=== PATIENT | male | born 1950 | race Caucasian/White ===

== ENCOUNTER 2023-01-03 13:16 | Inpatient (IN) ==
[2023-01-03 14:52] LABS: ABS Eosinophils 0.2 10^3/uL (0.0-0.5); ABS Lymphocytes 1.2 10^3/uL (1.0-4.8); ABS Monocytes 0.6 10^3/uL (0.0-1.1); ABS Neutrophils 5.6 10^3/uL (1.5-7.6); Eosinophil % 2.7 %; Hematocrit 22.1 % (38-53); Hemoglobin 7.4 g/dL (13.2-16.3); Lymphocyte % 15.5 %; Mean Corpuscular Hemoglobin 29.9 pg (27-33); Mean Corpuscular Hgb Conc 33.3 g/dL (31-36); Mean Corpuscular Volume 89.8 fL (80-97); Mean Platelet Volume 8.6 fL (7.5-11.2); Platelet Count 158 10^3/uL (150-450); Red Blood Count 2.46 10^6/uL (4.06-5.63); Red Cell Distribution Width 18.4 % (12-17); White Blood Count 7.6 10^3/uL (3.6-10.2)
[2023-01-03 15:03] LABS: INR 1.51 (0.88-1.18)
[2023-01-03] MEDS ORDERED: NS 0.9% 1000 ml BAG 200 ML IV PRN (15:22)
[2023-01-03] MEDS ORDERED: NS 0.9% 1000 ml BAG 100 ML IV PRN (15:22)
[2023-01-03] MEDS ORDERED: Albumin Human 25% 25 GM/100 ML BTL IV PRN (15:22)
[2023-01-03 15:24] LABS: Albumin 3.8 g/dL (3.2-5.2); Albumin/Globulin Ratio 1.5 (1-3); Calcium 9.6 mg/dL (8.6-10.3); Creatinine, Serum 3.53 mg/dL (0.67-1.17); Globulin 2.5 g/dL (2-4); Magnesium 1.8 mg/dL (1.9-2.7); Phosphorus 3.4 mg/dL (2.5-5.0); Potassium 3.3 mmol/L (3.5-5.0); Total Bilirubin 1.3 mg/dL (0.2-1.0); Total Protein 6.3 g/dL (6.4-8.9); eGFR CKD-EPI 17.4 (>60)
[2023-01-03] MEDS ORDERED: Magnesium Sulfate 2 gm BAG 2 GM/50 ML BAG IVPB ONE (16:11)
[2023-01-03] MEDS: Heparin 1,000 UNIT/ML 10 ml (10,000 UNITS) CATHLAB/DIALYSIS DIALYSIS SCH ×4 (16:16→19:15)
[2023-01-03 23:24] LABS: Hepatitis B Surface Antigen Nonreactive (Nonreactive)
[2023-01-03 23:29] LABS: Hepatitis B Core IgM Nonreactive (Nonreactive)
[2023-01-03 23:41] LABS: Hepatitis B Surface Ab Not Immune (Immune); Hepatitis C Antibody Negative (Negative)
[2023-01-04 09:50] LABS: ABS Eosinophils 0.1 10^3/uL (0.0-0.5); ABS Lymphocytes 0.9 10^3/uL (1.0-4.8); ABS Monocytes 0.5 10^3/uL (0.0-1.1); ABS Neutrophils 4.9 10^3/uL (1.5-7.6); Eosinophil % 1.9 %; Hematocrit 22.1 % (38-53); Hemoglobin 7.4 g/dL (13.2-16.3); Lymphocyte % 13.4 %; Mean Corpuscular Hgb Conc 33.3 g/dL (31-36); Mean Corpuscular Volume 90.3 fL (80-97); Mean Platelet Volume 8.3 fL (7.5-11.2); Platelet Count 142 10^3/uL (150-450); Red Blood Count 2.45 10^6/uL (4.06-5.63); Red Cell Distribution Width 18.2 % (12-17); White Blood Count 6.5 10^3/uL (3.6-10.2)
[2023-01-04 10:36] LABS: Creatinine, Serum 3.31 mg/dL (0.67-1.17); Potassium 3.3 mmol/L (3.5-5.0); eGFR CKD-EPI 18.8 (>60)
[2023-01-04] MEDS: Heparin 1,000 UNIT/ML 10 ml (10,000 UNITS) CATHLAB/DIALYSIS DIALYSIS SCH ×3 (11:34→13:47)
[2023-01-04] MEDS ORDERED: NS 0.9% 1000 ml BAG 200 ML IV PRN (11:50)
[2023-01-04] MEDS ORDERED: NS 0.9% 1000 ml BAG 100 ML IV PRN (11:50)
[2023-01-04] MEDS ORDERED: Albumin Human 25% 25 GM/100 ML BTL IV PRN (11:50)
[2023-01-04] MEDS: Cholecalciferol (VIT D3) 1,000 unit TAB PO SCH (14:09)
[2023-01-05] MEDS: Cholecalciferol (VIT D3) 1,000 unit TAB PO SCH (07:24)
[2023-01-05 12:04] LABS: ABS Basophils 0.1 10^3/uL (0.0-0.1); ABS Eosinophils 0.1 10^3/uL (0.0-0.5); ABS Lymphocytes 0.9 10^3/uL (1.0-4.8); ABS Monocytes 0.7 10^3/uL (0.0-1.1); ABS Neutrophils 5.5 10^3/uL (1.5-7.6); Eosinophil % 1.4 %; Hematocrit 24.5 % (38-53); Hemoglobin 8.2 g/dL (13.2-16.3); Lymphocyte % 12.6 %; Mean Corpuscular Hemoglobin 30.3 pg (27-33); Mean Corpuscular Hgb Conc 33.6 g/dL (31-36); Mean Platelet Volume 8.5 fL (7.5-11.2); Platelet Count 165 10^3/uL (150-450); Red Blood Count 2.72 10^6/uL (4.06-5.63); Red Cell Distribution Width 18.5 % (12-17); White Blood Count 7.3 10^3/uL (3.6-10.2)
[2023-01-05 12:31] LABS: Calcium 9.2 mg/dL (8.6-10.3); Creatinine, Serum 3.87 mg/dL (0.67-1.17); Magnesium 1.8 mg/dL (1.9-2.7); Potassium 3.5 mmol/L (3.5-5.0); eGFR CKD-EPI 15.6 (>60)
[2023-01-05] MEDS ORDERED: Magnesium Sulfate IV 3 GM in NS 0.9% 100 ml BAG 100 ML IVPB ONE (13:15)
[2023-01-05 18:48] LABS: Calcium 9.1 mg/dL (8.6-10.3); Creatinine, Serum 4.01 mg/dL (0.67-1.17); Magnesium 2.7 mg/dL (1.9-2.7); Potassium 3.5 mmol/L (3.5-5.0); eGFR CKD-EPI 14.9 (>60)
[2023-01-05] MEDS ORDERED: Potassium Chloride LIQUID 20 MEQ/15 ML LIQUID PO ONE (19:24)
[2023-01-06 06:55] LABS: ABS Basophils 0.1 10^3/uL (0.0-0.1); ABS Eosinophils 0.1 10^3/uL (0.0-0.5); ABS Lymphocytes 1.3 10^3/uL (1.0-4.8); ABS Monocytes 0.7 10^3/uL (0.0-1.1); ABS Neutrophils 4.7 10^3/uL (1.5-7.6); ABS Nucleated RBC 0.01 10^3/ul; Eosinophil % 1.7 %; Hemoglobin 7.8 g/dL (13.2-16.3); Lymphocyte % 18.5 %; Mean Corpuscular Hemoglobin 30.5 pg (27-33); Mean Corpuscular Hgb Conc 34.1 g/dL (31-36); Mean Corpuscular Volume 89.6 fL (80-97); Mean Platelet Volume 9.1 fL (7.5-11.2); Nucleated Red Blood Cells % 0.1 /100 WBC (0.0-0.4); Platelet Count 163 10^3/uL (150-450); Red Blood Count 2.57 10^6/uL (4.06-5.63); Red Cell Distribution Width 17.9 % (12-17); White Blood Count 6.8 10^3/uL (3.6-10.2)
[2023-01-06 07:11] LABS: Calcium 9.2 mg/dL (8.6-10.3); Creatinine, Serum 3.61 mg/dL (0.67-1.17); Magnesium 2.3 mg/dL (1.9-2.7); Potassium 3.8 mmol/L (3.5-5.0); eGFR CKD-EPI 16.9 (>60)
[2023-01-06] MEDS ORDERED: Potassium Chlor 20 meq TAB.ER PO ONE (07:15)
[2023-01-06] MEDS: Cholecalciferol (VIT D3) 1,000 unit TAB PO SCH (09:20)
[2023-01-06] MEDS: Heparin 1,000 UNIT/ML 10 ml (10,000 UNITS) CATHLAB/DIALYSIS DIALYSIS SCH (09:23)
[2023-01-06] MEDS ORDERED: Potassium Chlor 10 meq TAB PO ONE (14:08)
[2023-01-07 06:18] LABS: ABS Eosinophils 0.2 10^3/uL (0.0-0.5); ABS Lymphocytes 1.4 10^3/uL (1.0-4.8); ABS Monocytes 0.7 10^3/uL (0.0-1.1); ABS Neutrophils 4.7 10^3/uL (1.5-7.6); Eosinophil % 2.6 %; Hemoglobin 7.9 g/dL (13.2-16.3); Lymphocyte % 19.8 %; Mean Corpuscular Hemoglobin 30.2 pg (27-33); Mean Corpuscular Volume 91.5 fL (80-97); Nucleated Red Blood Cells % 0.1 /100 WBC (0.0-0.4); Platelet Count 181 10^3/uL (150-450); Red Blood Count 2.62 10^6/uL (4.06-5.63); Red Cell Distribution Width 18.4 % (12-17)
[2023-01-07 06:46] LABS: Calcium 9.5 mg/dL (8.6-10.3); Creatinine, Serum 3.43 mg/dL (0.67-1.17); Magnesium 2.1 mg/dL (1.9-2.7); Potassium 4.2 mmol/L (3.5-5.0)
[2023-01-07] MEDS: Cholecalciferol (VIT D3) 1,000 unit TAB PO SCH (08:00)
[2023-01-07] MEDS: Potassium Chlor 20 meq TAB.ER PO SCH (09:25)
[2023-01-08 06:31] LABS: Mean Corpuscular Hemoglobin 30.2 pg (27-33); Mean Corpuscular Hgb Conc 33.4 g/dL (31-36); Mean Corpuscular Volume 90.4 fL (80-97); Red Blood Count 2.66 10^6/uL (4.06-5.63); Red Cell Distribution Width 18.2 % (12-17); White Blood Count 7.3 10^3/uL (3.6-10.2)
[2023-01-08 06:32] LABS: ABS Basophils 0.1 10^3/uL (0.0-0.1); ABS Eosinophils 0.2 10^3/uL (0.0-0.5); ABS Lymphocytes 1.5 10^3/uL (1.0-4.8); ABS Monocytes 0.6 10^3/uL (0.0-1.1); Eosinophil % 2.4 %; Lymphocyte % 20.5 %; Platelet Count 206 10^3/uL (150-450)
[2023-01-08 06:50] LABS: Calcium 9.6 mg/dL (8.6-10.3); Creatinine, Serum 3.26 mg/dL (0.67-1.17); Magnesium 2.2 mg/dL (1.9-2.7); eGFR CKD-EPI 19.1 (>60)
[2023-01-08] MEDS: Potassium Chlor 20 meq TAB.ER PO SCH (09:23)
[2023-01-08] MEDS: Cholecalciferol (VIT D3) 1,000 unit TAB PO SCH (09:25)
[2023-01-08] MEDS: Heparin 1,000 UNIT/ML 10 ml (10,000 UNITS) CATHLAB/DIALYSIS DIALYSIS SCH (09:26)
[2023-01-08 16:19] VITALS: BP 121/46
== END 2023-01-08 15:40 | disposition home or self-care (01) | DRG 683 ==
LOC: ED 13:16 → SUATTDRO 15:09 → EDHOLD 15:09 → MEDTELE 16:25
PROVIDERS: ADMIT Internal Medicine; ATTEND Hospitalist

== ENCOUNTER 2023-02-05 13:50 | Observation (INO) ==
[~2023-02-05 13:50] MED LIST: Dexamethasone IV 4 MG/ML VIAL 1 ml VIAL ONE; Naloxone 0.4 mg VIAL 0.4 mg/ml 1 ml VIAL IV PRN; Prochlorperazine 5 mg/ml 2 ml VIAL (10 mg) IV PRN; Tranexamic Acid 1 GM/100ML BAG 0 MG/0 ML BAG IV ONE; ceFAZolin 2 GM in NS PREMIX 0 GM/0 ML BAG IVPB ONE; fentaNYL 100 mcg/2 ml 50 MCG/ML VIAL IV PRN
[2023-02-05] MEDS ORDERED: ceFAZolin 2 GM in NS PREMIX 2 GM/100 ML BAG IVPB ONE (17:35)
[2023-02-05] MEDS ORDERED: Naloxone 0.4 mg VIAL 0.4 mg/ml 1 ml VIAL IV PRN (19:51)
[2023-02-05] MEDS ORDERED: Metoclopramide 5 MG/ML VIAL (10 mg) IV PRN (19:51)
[2023-02-05] MEDS ORDERED: HYDROcodone/ACETAMIN 5/325 mg TAB PO PRN (19:51)
[2023-02-05] MEDS ORDERED: Ondansetron 4 mg VIAL 2 MG/ML 2 ml VIAL IV PRN (19:51)
[2023-02-05] MEDS ORDERED: fentaNYL 100 mcg/2 ml 50 MCG/ML VIAL IV PRN (19:51)
[2023-02-05] MEDS ORDERED: Bupivacaine 0.25% w/EPI 10 ML SDV ONE (19:59)
[2023-02-05] MEDS ORDERED: fentaNYL 100 mcg/2 ml 50 MCG/ML VIAL ONE (20:12)
[2023-02-05] MEDS ORDERED: Propofol 10 MG/ML 20 ML BTL ONE (20:27)
[2023-02-05 23:17] LABS: Rapid COVID-19 Molecular Undetected (Undetected)
[2023-02-05] MEDS ORDERED: Metoprolol Tartrate 5 mg VIAL 5 ml VIAL (1 mg/ml) IV ONE (23:29)
[2023-02-06 01:27] LABS: ABS Basophils 0.1 10^3/uL (0.0-0.1); ABS Eosinophils 0.1 10^3/uL (0.0-0.5); ABS Lymphocytes 1.6 10^3/uL (1.0-4.8); ABS Monocytes 0.7 10^3/uL (0.0-1.1); ABS Neutrophils 5.6 10^3/uL (1.5-7.6); ABS Nucleated RBC 0.01 10^3/ul; Eosinophil % 1.7 %; Hematocrit 22.5 % (38-53); Hemoglobin 7.7 g/dL (13.2-16.3); Lymphocyte % 20.2 %; Mean Corpuscular Hemoglobin 30.2 pg (27-33); Mean Corpuscular Hgb Conc 34.3 g/dL (31-36); Mean Corpuscular Volume 88.1 fL (80-97); Mean Platelet Volume 9.4 fL (7.5-11.2); Nucleated Red Blood Cells % 0.1 /100 WBC (0.0-0.4); Platelet Count 148 10^3/uL (150-450); Red Blood Count 2.56 10^6/uL (4.06-5.63); Red Cell Distribution Width 17.4 % (12-17); White Blood Count 8.1 10^3/uL (3.6-10.2)
[2023-02-06 01:37] LABS: Calcium 9.7 mg/dL (8.6-10.3); Potassium 2.9 mmol/L (3.5-5.0)
[2023-02-06 01:42] LABS: Creatinine, Serum 4.03 mg/dL (0.67-1.17); eGFR CKD-EPI 14.7 (>60)
[2023-02-06] MEDS ORDERED: Metoprolol Tartrate 5 mg VIAL 5 ml VIAL (1 mg/ml) IV ONE (03:03)
[2023-02-06 04:02] LABS: Magnesium 2.1 mg/dL (1.9-2.7)
[2023-02-06] MEDS: KCL 20 MEQ/100 ML IVPREMIX 20 MEQ/100 ML BAG IV SCH ×2 (04:09→06:11)
[2023-02-06 07:21] LABS: ABS Basophils 0.1 10^3/uL (0.0-0.1); ABS Eosinophils 0.2 10^3/uL (0.0-0.5); ABS Lymphocytes 1.3 10^3/uL (1.0-4.8); ABS Monocytes 0.7 10^3/uL (0.0-1.1); ABS Neutrophils 6.2 10^3/uL (1.5-7.6); ABS Nucleated RBC 0.01 10^3/ul; Eosinophil % 1.8 %; Hematocrit 22.3 % (38-53); Hemoglobin 7.5 g/dL (13.2-16.3); Lymphocyte % 15.6 %; Mean Corpuscular Hgb Conc 33.7 g/dL (31-36); Mean Corpuscular Volume 88.9 fL (80-97); Mean Platelet Volume 10.2 fL (7.5-11.2); Nucleated Red Blood Cells % 0.1 /100 WBC (0.0-0.4); Platelet Count 146 10^3/uL (150-450); White Blood Count 8.5 10^3/uL (3.6-10.2)
[2023-02-06 07:32] LABS: Calcium 9.6 mg/dL (8.6-10.3); Potassium 3.5 mmol/L (3.5-5.0)
[2023-02-06 07:37] LABS: Creatinine, Serum 4.16 mg/dL (0.67-1.17); eGFR CKD-EPI 14.2 (>60)
[2023-02-06] MEDS ORDERED: Potassium Chlor 20 meq TAB.ER PO SCH ×2 (09:00→14:00)
[2023-02-06] MEDS ORDERED: NON FORMULARY MED (Metolazone 2.5 mg Tablet) PO SCH (09:45)
[2023-02-06 14:03] VITALS: BP 126/42
[2023-02-06 17:09] LABS: Calcium 9.8 mg/dL (8.6-10.3); Creatinine, Serum 3.87 mg/dL (0.67-1.17); Potassium 3.7 mmol/L (3.5-5.0); eGFR CKD-EPI 15.5 (>60)
== END 2023-02-06 16:34 | disposition home or self-care (01) ==
LOC: MEDTELE 13:50 → OR 13:50
PROVIDERS: ADMIT Surgery; ATTEND Internal Medicine

== ENCOUNTER 2024-04-28 02:47 | Inpatient (IN) ==
[2024-04-28 04:20] LABS: ABS Basophils 0.1 10^3/uL (0.0-0.1); ABS Eosinophils 0.1 10^3/uL (0.0-0.5); ABS Lymphocytes 0.5 10^3/uL (1.0-4.8); ABS Monocytes 0.8 10^3/uL (0.0-1.1); ABS Neutrophils 11.7 10^3/uL (1.5-7.6); Eosinophil % 0.5 %; Hematocrit 34.2 % (38-53); Hemoglobin 11.4 g/dL (13.2-16.3); Lymphocyte % 3.9 %; Mean Corpuscular Hemoglobin 30.7 pg (27-33); Mean Corpuscular Hgb Conc 33.4 g/dL (31-36); Mean Platelet Volume 9.3 fL (7.5-11.2); Platelet Count 188 10^3/uL (150-450); Red Blood Count 3.72 10^6/uL (4.06-5.63); Red Cell Distribution Width 16.3 % (12-17); White Blood Count 13.2 10^3/uL (3.6-10.2)
[2024-04-28] MEDS: Ondansetron 4 mg VIAL 2 MG/ML 2 ml VIAL IV ONE ×2 (04:39→09:08)
[2024-04-28 04:53] LABS: Albumin 4.1 g/dL (3.2-5.2); Albumin/Globulin Ratio 1.3 (1-3); C Reactive Protein 109.74 mg/L (<8.01); Creatinine, Serum 5.37 mg/dL (0.67-1.17); Globulin 3.1 g/dL (2-4); Potassium 3.9 mmol/L (3.5-5.0); Total Bilirubin 3.2 mg/dL (0.2-1.0); Total Protein 7.2 g/dL (6.4-8.9); eGFR CKD-EPI 10.4 (>60)
[2024-04-28] MEDS: Morphine 4 MG/ML VIAL (1 ml) IV ONE ×2 (05:46→07:45)
[2024-04-28] MEDS: Piperacillin/Tazobac 3.375 BAG 3.375 GM/100 ML BAG IV ONE (05:49)
[2024-04-28] MEDS ORDERED: Zosyn per Pharmacy NOTE FOLLOW UP SCH (06:00)
[2024-04-28] MEDS: Lactated Ringers 1000 ml BAG IV.FLUID IV ONE ×2 (09:08→09:10)
[2024-04-28 09:20] LABS: Albumin 3.9 g/dL (3.2-5.2); Albumin/Globulin Ratio 1.3 (1-3); Calcium 9.7 mg/dL (8.6-10.3); Creatinine, Serum 5.46 mg/dL (0.67-1.17); Direct Bilirubin 1.4 mg/dL (0.03-0.18); Indirect Bilirubin 1.4 mg/dL (0.3-1.0); Potassium 3.9 mmol/L (3.5-5.0); Total Bilirubin 2.8 mg/dL (0.2-1.0); Total Protein 6.9 g/dL (6.4-8.9); eGFR CKD-EPI 10.2 (>60)
[2024-04-28] MEDS: ZOSYN 3.375 GM Q12H per EXTENDED INFUSION IV SCH (11:05)
[2024-04-28] MEDS ORDERED: Acetaminophen IV 1 GM/100ML 1,000 MG/100 ML BAG IV PRN (16:26)
[2024-04-28] MEDS: Heparin 1,000 UNIT/ML 10 ml (10,000 UNITS) CATHLAB/DIALYSIS DIALYSIS SCH (18:01)
[2024-04-28] MEDS: Lactated Ringers 1000 ml BAG 1,000 ML IV SCH (20:03)
[2024-04-29] MEDS: ZOSYN 3.375 GM Q12H per EXTENDED INFUSION IV SCH (00:52)
[2024-04-29 06:35] LABS: ABS Lymphocytes 0.5 10^3/uL (1.0-4.8); ABS Monocytes 1.5 10^3/uL (0.0-1.1); ABS Neutrophils 16.5 10^3/uL (1.5-7.6); Hematocrit 30.9 % (38-53); Hemoglobin 10.3 g/dL (13.2-16.3); Lymphocyte % 2.5 %; Mean Corpuscular Hgb Conc 33.4 g/dL (31-36); Mean Corpuscular Volume 92.7 fL (80-97); Mean Platelet Volume 9.9 fL (7.5-11.2); Platelet Count 172 10^3/uL (150-450); Red Blood Count 3.33 10^6/uL (4.06-5.63); Red Cell Distribution Width 15.8 % (12-17); White Blood Count 18.4 10^3/uL (3.6-10.2)
[2024-04-29 06:58] LABS: Albumin 3.4 g/dL (3.2-5.2); Albumin/Globulin Ratio 1.2 (1-3); Calcium 9.5 mg/dL (8.6-10.3); Creatinine, Serum 5.31 mg/dL (0.67-1.17); Globulin 2.8 g/dL (2-4); Magnesium 1.8 mg/dL (1.9-2.7); Potassium 4.3 mmol/L (3.5-5.0); Total Bilirubin 1.9 mg/dL (0.2-1.0); Total Protein 6.2 g/dL (6.4-8.9); eGFR CKD-EPI 10.5 (>60)
[2024-04-29] MEDS ORDERED: fentaNYL 100 mcg/2 ml 50 MCG/ML VIAL IV PRN (09:36)
[2024-04-29] MEDS ORDERED: Naloxone 0.4 mg VIAL 0.4 mg/ml 1 ml VIAL IV PRN (09:36)
[2024-04-29] MEDS ORDERED: Ondansetron 4 mg VIAL 2 MG/ML 2 ml VIAL IV PRN (09:36)
[2024-04-29] MEDS: Lactated Ringers 1000 ml BAG 1,000 ML IV ONE (09:45)
[2024-04-29] MEDS ORDERED: NS 0.45% 1000 ml BAG 1,000 ML IV SCH (10:00)
[2024-04-29] MEDS ORDERED: Rocuronium 50 mg VIAL 10 mg/ml 5 ml VIAL (50 mg) ONE (10:26)
[2024-04-29] MEDS ORDERED: Ondansetron 4 mg VIAL 2 MG/ML 2 ml VIAL ONE (10:26)
[2024-04-29] MEDS ORDERED: Propofol 10 MG/ML 20 ML BTL ONE ×4 (10:26→16:11)
[2024-04-29] MEDS ORDERED: Dexamethasone IV 4 MG/ML VIAL 1 ml VIAL ONE (10:26)
[2024-04-29] MEDS ORDERED: Lidocaine 2% PF 5 ML VIAL ONE (10:26)
[2024-04-29] MEDS ORDERED: Midazolam 2 mg/2 ml VIAL 1 mg/ml 2 ml VIAL (2 mg) ONE (10:26)
[2024-04-29] MEDS ORDERED: fentaNYL 100 mcg/2 ml 50 MCG/ML VIAL ONE ×3 (10:26→16:16)
[2024-04-29] MEDS ORDERED: Iohexol 180 (CONTRAST) 10 ML SDV IV ONE (13:19)
[2024-04-29] MEDS ORDERED: Bupivacaine 0.25% SDV 30 ML ONE (13:19)
[2024-04-29] MEDS ORDERED: ceFAZolin 2 GM PREMIX 2 GM/50 ML BAG ONE (14:28)
[2024-04-29] MEDS ORDERED: Sterile Water for Inj 10 ML ONE (14:43)
[2024-04-29] MEDS ORDERED: Acetaminophen IV 1 GM/100ML 1,000 MG/100 ML BAG IV ONE (15:06)
[2024-04-29] MEDS ORDERED: Glycopyrrolate IV 0.2 MG/ML 1 ML VIAL ONE (15:10)
[2024-04-29] MEDS ORDERED: Neostigmine Methylsulfate 3 MG/3 ML SYRINGE ONE (15:10)
[2024-04-29] MEDS: Buffered Lidocaine 1% SYRIN 1 ml INTRADERM ONE (18:36)
[2024-04-29] MEDS: Acetaminophen IV 1 GM/100ML 1,000 MG/100 ML BAG IV ONE (18:36)
[2024-04-30] MEDS: Morphine 2 MG/ML SYRINGE IV PRN (07:17)
[2024-04-30 07:31] LABS: ABS Lymphocytes 0.5 10^3/uL (1.0-4.8); ABS Neutrophils 17.6 10^3/uL (1.5-7.6); Lymphocyte % 2.6 %; Mean Corpuscular Hemoglobin 30.8 pg (27-33); Mean Corpuscular Hgb Conc 33.3 g/dL (31-36); Mean Corpuscular Volume 92.5 fL (80-97); Mean Platelet Volume 11.1 fL (7.5-11.2); Platelet Count 196 10^3/uL (150-450); Red Blood Count 3.25 10^6/uL (4.06-5.63); Red Cell Distribution Width 15.4 % (12-17); White Blood Count 19.1 10^3/uL (3.6-10.2)
[2024-04-30 07:56] LABS: Calcium 9.3 mg/dL (8.6-10.3); Creatinine, Serum 5.46 mg/dL (0.67-1.17); Magnesium 1.7 mg/dL (1.9-2.7); Potassium 3.6 mmol/L (3.5-5.0); eGFR CKD-EPI 10.2 (>60)
[2024-04-30] MEDS: Morphine 2 MG/ML SYRINGE IV ONE (09:19)
[2024-04-30] MEDS: Ondansetron 4 mg VIAL 2 MG/ML 2 ml VIAL IV PRN (09:19)
[2024-04-30] MEDS: Magnesium Sulfate 2 gm BAG 2 GM/50 ML BAG IVPB ONE (09:23)
[2024-04-30 09:38] LABS: Albumin 3.2 g/dL (3.2-5.2); Albumin/Globulin Ratio 1.1 (1-3); Direct Bilirubin 0.7 mg/dL (0.03-0.18); Globulin 2.9 g/dL (2-4); Indirect Bilirubin 0.7 mg/dL (0.3-1.0); Total Bilirubin 1.4 mg/dL (0.2-1.0); Total Protein 6.1 g/dL (6.4-8.9)
[2024-04-30] MEDS: Metoclopramide 5 MG/ML VIAL (10 mg) IV PRN (12:09)
[2024-04-30] MEDS: Morphine 10 MG/ML VIAL (1 ml) IV PRN (19:27)
[2024-04-30] MEDS: Polyethylene Glycol 3350 17 GM PACKET PO SCH (20:30)
[2024-04-30] MEDS: Senna TAB 8.6 mg TAB PO PRN (20:31)
[2024-05-01 06:02] LABS: ABS Basophils 0.1 10^3/uL (0.0-0.1); ABS Lymphocytes 0.5 10^3/uL (1.0-4.8); ABS Monocytes 0.9 10^3/uL (0.0-1.1); Hematocrit 29.2 % (38-53); Lymphocyte % 3.5 %; Mean Corpuscular Hemoglobin 31.4 pg (27-33); Mean Corpuscular Hgb Conc 34.2 g/dL (31-36); Mean Corpuscular Volume 91.8 fL (80-97); Mean Platelet Volume 11.7 fL (7.5-11.2); Platelet Count 209 10^3/uL (150-450); Red Blood Count 3.18 10^6/uL (4.06-5.63); Red Cell Distribution Width 15.4 % (12-17); White Blood Count 15.5 10^3/uL (3.6-10.2)
[2024-05-01 08:36] LABS: Albumin/Globulin Ratio 1.1 (1-3); Calcium 8.8 mg/dL (8.6-10.3); Creatinine, Serum 5.9 mg/dL (0.67-1.17); Globulin 2.8 g/dL (2-4); Potassium 3.5 mmol/L (3.5-5.0); Total Bilirubin 1.7 mg/dL (0.2-1.0); Total Protein 5.8 g/dL (6.4-8.9); eGFR CKD-EPI 9.3 (>60)
[2024-05-01] MEDS ORDERED: Dextrose 50% Syringe 50 ml 25 GM/50 ML SYRINGE IV PUSH PRN (09:20)
[2024-05-01 14:14] LABS: Magnesium 2.3 mg/dL (1.9-2.7)
[2024-05-01] MEDS ORDERED: Sulfur Hexaflouride MICROSPHR 25 MG VIAL IV PRN (17:58)
[2024-05-01] MEDS: Senna TAB 8.6 mg TAB PO SCH (22:53)
[2024-05-02 05:51] LABS: Hematocrit 29.9 % (38-53); Hemoglobin 9.9 g/dL (13.2-16.3); Mean Corpuscular Hemoglobin 30.6 pg (27-33); Mean Corpuscular Hgb Conc 33.2 g/dL (31-36); Mean Corpuscular Volume 92.2 fL (80-97); Mean Platelet Volume 10.9 fL (7.5-11.2); Platelet Count 263 10^3/uL (150-450); Red Blood Count 3.25 10^6/uL (4.06-5.63); Red Cell Distribution Width 15.6 % (12-17); White Blood Count 23.9 10^3/uL (3.6-10.2)
[2024-05-02 06:08] LABS: Calcium 8.6 mg/dL (8.6-10.3); Creatinine, Serum 6.52 mg/dL (0.67-1.17); Magnesium 2.1 mg/dL (1.9-2.7); Potassium 3.2 mmol/L (3.5-5.0); eGFR CKD-EPI 8.2 (>60)
[2024-05-02 07:22] LABS: ABS Lymphocytes 0.3 10^3/uL (1.0-4.8); ABS Monocytes 1.1 10^3/uL (0.0-1.1); ABS Neutrophils 22.4 10^3/uL (1.5-7.6); Lymphocyte % 1.4 %
[2024-05-02] MEDS ORDERED: Sulfur Hexaflouride MICROSPHR 25 MG VIAL ONE (07:35)
[2024-05-02] MEDS: Potassium Chlor 20 meq TAB.ER PO ONE ×2 (08:56→12:35)
[2024-05-02] MEDS ORDERED: Senna TAB 8.6 mg TAB PO PRN (14:06)
[2024-05-02] MEDS ORDERED: Magnesium Hydroxide LIQ 30 ML UDC PO PRN (14:06)
[2024-05-02] MEDS: Magnesium Hydroxide LIQ 30 ML UDC PO SCH (22:08)
[2024-05-03 05:58] LABS: Hematocrit 26.9 % (38-53); Mean Corpuscular Hemoglobin 30.8 pg (27-33); Mean Corpuscular Hgb Conc 33.4 g/dL (31-36); Mean Corpuscular Volume 92.1 fL (80-97); Mean Platelet Volume 10.3 fL (7.5-11.2); Platelet Count 260 10^3/uL (150-450); Red Blood Count 2.92 10^6/uL (4.06-5.63); Red Cell Distribution Width 15.7 % (12-17); White Blood Count 22.7 10^3/uL (3.6-10.2)
[2024-05-03 06:03] LABS: ABS Lymphocytes 0.4 10^3/uL (1.0-4.8); ABS Monocytes 1.1 10^3/uL (0.0-1.1); ABS Neutrophils 21.1 10^3/uL (1.5-7.6); Eosinophil % 0.1 %; Lymphocyte % 1.9 %
[2024-05-03 06:49] LABS: Calcium 8.4 mg/dL (8.6-10.3); Creatinine, Serum 7.1 mg/dL (0.67-1.17); Magnesium 2.1 mg/dL (1.9-2.7); eGFR CKD-EPI 7.4 (>60)
[2024-05-03 13:20] LABS: Rapid COVID-19 Molecular Undetected (Undetected)
[2024-05-03 17:37] VITALS: BP 120/48
[2024-05-03 20:39] LABS: Total Bilirubin 2.6 mg/dL (0.2-1.0)
== END 2024-05-03 19:30 | disposition short-term general hospital (02) | DRG 417 ==
LOC: EDHOLD 02:47 → ED 02:47 → SUATTDRO 15:14 → OBSVTOIN 15:14 → MED 16:33
PROVIDERS: ADMIT Internal Medicine; ATTEND Student in an Organized Health Care Education/Training Program